=== PATIENT | female | born 1985 | race Caucasian/White ===

== ENCOUNTER 2019-02-14 18:12 | Emergency (ER) | payer BC, SELFPAY ==
[2019-02-14 18:14] VITALS: BP 156/112; PULSE 70; RESP 17; TEMP 36.9; O2SAT 100; BMI 23.9
--- NOTE | 2019-02-14 18:42 | CT_ITS ---
STUDY: CT BRAIN WITHOUT CONTRAST REASON FOR EXAM: Female, 33 years old. Orbital pain and elevated blood pressure RADIATION DOSAGE (If Supplied By Facility): CTDIvol = ( 44.99 ) mGy, DLP = ( 779.24 ) mGycm TECHNIQUE: Transaxial CT imaging of the brain was performed without administration of intravenous contrast material. Individualized dose optimization techniques were used for this CT. COMPARISON: No relevant priors. FINDINGS: Normal soft tissue structures. Normal calvarium. Normal size ventricles and extra-axial spaces for the patient's age. Normal white matter tracts of the cerebral hemispheres. Normal basal ganglia and thalami. Normal brainstem. Normal cerebellum. There is no intracranial hemorrhage. There are no findings of an acute ischemic infarction. Normal visualized paranasal sinuses. CT/Brain/Head without Contrast IMPRESSION: Normal unenhanced CT scan of the brain. Electronically Signed: Charan Bergeron MD at 19:23 EDT , Service support ,
--- NOTE | 2019-02-14 18:42 | EKG12_ITS ---
Test Reason : CP Blood Pressure : / mmHG Vent. Rate : 059 BPM Atrial Rate : 059 BPM P-R Int : 144 ms QRS Dur : 084 ms QT Int : 432 ms P-R-T Axes : 041 045 049 degrees QTc Int : 427 ms Sinus bradycardia Otherwise normal ECG Confirmed by PRANAV PLAZA, JULI ([id number]), market editor JAC GOLDSTEIN ([id number]) on 02/19/2019 10:34:11 AM Referred By: BLADIMIR Confirmed By:HEIKE ROCK MD
--- NOTE | 2019-02-14 18:51 | ED.RN ---
NO OLD EKGS IN MUSE
[2019-02-14 19:46] LABS: Bacteria 0 SEEN /hpf (None Seen); Mucous, Urine 0 SEEN /hpf (<or=2+); White Blood Cells 0 SEEN /hpf (0-5)
[2019-02-14 19:46] LABS: Anion Gap 7 (5-15); BUN 14 mg/dL (7-18); BUN/Creat Ratio 15.3 RATIO (10-20); Chloride 108 mmol/L (98-107); Creatinine, Serum 0.92 mg/dL (0.55-1.02); EST Glomerular Filtration Rate 75 mL/min (>60); Est Glom Filt Rate - Afr Amer 91 mL/min (>60); Estimated Creatinine Clearance 75.81 ml/min; Glucose 83 mg/dL (74-106); Potassium 3.8 mmol/L (3.5-5.1); Sodium Level 141 mmol/L (136-145)
[2019-02-14 20:13] LABS: Color, Urine Yellow (Yellow); Glucose, Dipstick Normal (Normal); Ketone-Dipstick 15 mg/dl (Negative); Leukocyte Esterase-Dipstick 25 /ul (Negative); Nitrite-Dipstick Negative (Negative); Occult Blood-Urine Negative /ul (Negative); Protein-Dipstick Negative (Negative); Urine Bilirubin Dipstick Negative (Negative); Urine Clarity Clear (Clear); Urine Urobilinogen Normal (Normal); Urine pH 6.5 (5.0 - 8.0)
--- NOTE | 2019-02-14 20:14 | ED.DCSUM_ITS ---
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 She describes dizziness which he defines as her depth perception being off. She also reports feeling as if she is in a fog and not concentrating. She reports tightness left chest, left shoulder and left upper extremity. She states she had trouble swallowing solids only a couple of days ago. She denies neck pain. She denies paresthesia, anesthesia motors. She denies dyspnea or dyspnea on exertion. She denies orthopnea or PND. She has no GI complaints. She has no complaints. She is on no anticoagulant. She is on no antihypertensive medication. Prior similar symptoms: Yes Recent Illness/Hospitalization: No - Past Medical History (1) Elevated blood-pressure reading without diagnosis of hypertension Status: Acute Past Medical History - Allergies and Home Meds Allergies/Adverse Reactions: Allergies cefazolin [From Ancef] Allergy (Verified 02/14/19 18:14) Anaphylaxis cephalexin [From Keflex] Allergy (Verified 02/14/19 18:14) Anaphylaxis Primary Care Physician: Carl Fraser,Out of [Primary Care Provider] - Prior records reviewed: No - None available for review Past Medical History: None Surgical History: no surgical history Lives: Spouse/ Significant Other Smoking Status: Never smoker Alcohol: None Drugs: None Review of Systems General: Denies: Chills, Fever, Malaise, Sweats Eyes: Reports: - - Altered depth perception. Denies: Visual changes - left, Visual changes - right, Visual changes - bilaterally, Blurred vision - left, Blurred vision - right, Blurred Vision - bilaterally, Diplopia, - ENT: Reports: - - No ringing in her ears or decreased hearing. Denies: Bi lateral ear pain, Rhinorrhea, Sore throat Cardiovascular: Reports: Chest pain. Denies: Palpitations, Heart racing Respiratory: Denies: Dyspnea, Cough, Sputum, Dyspnea on exertion, Orthopnea, Paroxysmal nocturnal dyspnea, -, - Gastrointestinal: Denies: Abdominal pain, Nausea, Vomiting, Diarrhea, Melena, Hematochezia Genitourinary: Denies: Dysuria, Hematuria, Frequency Musculoskeletal: Denies: Myalgias, Arthralgias, Neck pain, Back pain, Swelling, Extremity Pain, -, - Skin: Denies: Rash, Wounds Neurological: Reports: Headache. Denies: Weakness, Parasthesia, Numbness Endocrine: Denies: Polyuria, Polydipsia Hematologic: Denies: Easy bruising, Easy bleeding Allergy: Denies: Uticaria, Swelling of the mouth, Swelling of the tongue Physical Exam Vital Signs/Narrative: Vital Signs Temp Pulse Resp BP Pulse Ox 02/14/19 18:14 98.4 F 70 17 156/112 H 100 Inital Vital Signs reviewed: Yes General: Well nourished, Well developed, No Acute Distress Head: Normocephalic, Atraumatic Eyes: Perrl, EOMI, - - Endoscopic exam reveals normal cup-to-disc ratio no papilledema. There is no AV nicking noted.. Negative for: Pale conjunctiva, Scleral icterus ENT: Moist mucous membranes, No rhinorrhea, TM's clear Neck: Supple, Nontender, No lymphadenopathy, No JVD Cardiovascular: Regular rate, Regular rhythm, No murmurs, Normal S1, Normal S2 Respiratory: No distress, CTA bilaterally, Chest nontender Abdomen: Soft, Nontender, Nondistended, Normal bowel sounds Rectal: Deferred Back: Nontender, Normal Inspection Extremities: Nontender, No edema. Negative for: Calf Tenderness Skin: Normal color, No rash, Cyanosis, Diaphoresis, Jaundice. Negative for: No Trauma Neurological: Alert, Oriented x3, Cranial nerves II-XII grossly intact, Normal Strength, Normal Sensation, Normal DTR, Normal Gait, - - No clonus or Babinski sign. Lceokk-pi-awan with eyes open and closed was performed with no asymmetry or abnormality Psychological: Normal affect, Normal Mood Diagnostic/Tx/Re-eval Impressions Brain CT 02/14/19 18:42 IMPRESSION: Normal unenhanced CT scan of the brain. Electronically Signed: Charan Bergeron MD at 19:23 EDT , Service support , 02/14/19 18:42 Brain/Head without Contrast [CT] Stat Laboratory Results 02/14/19 02/14/19 18:55 19:38 Sodium 141 Potassium 3.8 Chloride 108 H Carbon Dioxide 26.0 Anion Gap 7 BUN 14 Creatinine 0.92 Estim Creat Clear Calc 75.81 Est GFR (MDRD) Af Amer 91 Est GFR (MDRD) Non-Af 75 BUN/Creatinine Ratio 15.3 Glucose 83 Calcium 9.0 Urine Color Yellow Urine Clarity Clear Urine pH 6.5 Ur Specific [place] 1.010 Urine Protein Negative Urine Glucose (UA) Normal Urine Ketones 15 H Urine Occult Blood Negative Urine Nitrite Negative Urine Bilirubin Negative Urine Urobilinogen Normal Ur Leukocyte Esterase 25 H - Medical Decision Making She with markedly elevated blood pressure. Because she complains of headache and has unusual neuro symptoms CT of the head was obtained. There is no evidence of intracranial bleed or stroke. Blood work was obtained to assess for endorgan injury. There is no evidence of endorgan injury. Since patient has multiple elevated blood pressure readings she received a dose of lisinopril in the department. She was discharged with prescription for lisinopril. Since she does not have a primary care physician he was referred to Dr. Malvin Leung. ED Disposition - Plan for ED Patient: Disposition: Home or Assisted Living Diagnosis: Accelerated hypertension Instructions: HYPERTENSION, New (Begin Treatment) Prescriptions: Lisinopril [Zestril] 10 mg PO DAILY #30 tab Prescription Printed Referrals: [facility] Doctor,Out of [Primary Care Provider] - Malvin Leung MD [STAFF PHYSICIAN] - 1-2 Weeks Additional Instructions: Since she had multiple elevated blood pressure readings you were started on lisinopril. You were given prescription for lisinopril. You should take 1 tablet daily. You do not have a position you may follow-up with Dr. Malvin Leung who is accepting new patients. You should have your blood pressure reassessed in 1 to 2 weeks.
[2019-02-14 20:23] VITALS: BP 161/101; PULSE 71; RESP 19; O2SAT 100
[2019-02-14 20:32] VITALS: BP 139/98; PULSE 73; RESP 78; TEMP -7.2; TEMP 19; O2SAT 98
[2019-02-14 20:40] LABS: Red Blood Cells-Urine 0-5 SEEN /hpf (0-5); Squamous Epithelial Cells - UA 0-5 SEEN /hpf (5-10)
[2019-02-14] MEDS: Lisinopril 10 MG Tablet PO (20:43)
== END 2019-02-14 20:41 | disposition home or self-care (01) ==
PROVIDERS: Emergency Provider Emergency Medicine; Family Provider Family Medicine; PCP Family Medicine
DX: I10 Essential (primary) hypertension (principal); H53.8 Other visual disturbances; R07.89 Other chest pain; M79.602 Pain in left arm; M25.512 Pain in left shoulder
CPT/HCPCS: 70450; 80048; 81001; 93005; 99285; A4216

== ENCOUNTER 2020-05-13 00:15 | Emergency (ER) | payer OTHER, SELFPAY ==
[2020-05-13] VITALS (11 sets, daily range): BP systolic 100–145; BP diastolic 69–100; PULSE 69–131; RESP 15–18; TEMP 36–36.6; O2SAT 98–100; BMI 22.8
[2020-05-13 01:10] LABS: Absolute Lymphocyte Count 2.51 X10^3/uL (0.83-4.51); Absolute Neutrophil Count 4.8 X10^3/uL (2.0-7.7); Basophil# 0.04 X10^3/uL; Basophil% 0.5 % (0-1); Eosinophil# 0.06 X10^3/uL; Eosinophils% 0.8 % (0-5); Hematocrit 49.3 % (37-47); Hemoglobin 15.9 g/dL (12.0-15.0); Lymphocyte # 2.51 X10^3/ul (4.0); Lymphocyte % 32.1 % (19-41); Mean Corp Hgb Conc 32.3 g/dL (32-36); Mean Corpuscular Hgb 31.2 pg (27.0-32.0); Mean Corpuscular Volume 96.7 fL (81-99); Mean Platelet Vol. 9.4 fl (6.2-12.0); Monocyte# 0.39 X10^3/uL; NRBC Flagged by Analyzer 0 % (0-5); Neutrophil # 4.79 X10^3/uL (2.7-7.7); Neutrophil % 61.3 % (47-70); Platelet Count 329 K/mm3 (150-450); RBC Distribution Width CV 11.7 % (11.6-14.6); White Blood Count 7.8 K/mm3 (4.4-11.0)
[2020-05-13 01:18] LABS: Internal QC Validated? YES +Cl - CLEAR BKGD; Pregnancy, Serum, hCG Quali. NEGATIVE Negative
[2020-05-13 01:26] LABS: Anion Gap 13 (5-15); BUN 11 mg/dL (7-18); BUN/Creat Ratio 11.2 RATIO (10-20); Calcium,Total 9.3 mg/dL (8.5-10.1); Chloride 107 mmol/L (98-107); Creatinine, Serum 0.98 mg/dL (0.55-1.02); EST Glomerular Filtration Rate 69 mL/min (>60); Est Glom Filt Rate - Afr Amer 84 mL/min (>60); Estimated Creatinine Clearance 69.85 ml/min; Glucose 97 mg/dL (74-106); Potassium 3.6 mmol/L (3.5-5.1); Sodium Level 142 mmol/L (136-145)
[2020-05-13 01:30] LABS: Acetaminophen (Tylenol) Level < 10.0 ug/mL (10.0-30.0); Salicylate < 1.7 mg/dL (2.8-20.0)
[2020-05-13 01:38] LABS: Mucous, Urine 0 SEEN /hpf (<or=2+); Red Blood Cells-Urine 0 SEEN /hpf (0-5); White Blood Cells 0 SEEN /hpf (0-5)
[2020-05-13 01:41] LABS: Color, Urine Yellow (Yellow); Glucose, Dipstick Normal (Normal); Ketone-Dipstick Negative (Negative); Leukocyte Esterase-Dipstick Negative /ul (Negative); Nitrite-Dipstick Negative (Negative); Occult Blood-Urine Negative /ul (Negative); Protein-Dipstick Negative (Negative); Urine Bilirubin Dipstick Negative (Negative); Urine Clarity Clear (Clear); Urine Urobilinogen Normal (Normal); Urine pH 6.5 (5.0 - 8.0)
[2020-05-13 01:47] LABS: Amorphous Sediment 1+; Bacteria RARE /hpf (None Seen); Squamous Epithelial Cells - UA 0-5 SEEN /hpf (5-10)
[2020-05-13 01:53] LABS: Amphetamine Urine VISTA NEGATIVE (<1000 ng/mL); Barbiturate Urine VISTA NEGATIVE (< 200 ng/mL); Benzodiazepine Urine VISTA NEGATIVE (< 200 ng/mL); Cocaine Urine VISTA NEGATIVE (< 300 ng/mL); Ecstacy Urine VISTA NEGATIVE (< 500 ng/mL); Methadone Urine VISTA NEGATIVE (< 300 ng/mL); PCP Urine VISTA NEGATIVE (< 25 ng/mL); THC Urine VISTA NEGATIVE (< 50 ng/mL); Vista UDS pH Range 6
--- NOTE | 2020-05-13 03:51 | ED.DCSUM_ITS ---
- ER Visit Summary Date of Service: 05/13/20 Chief Complaint: Suicide attempt, overdose History of Present Illness: The patient is a 35 F who comes in stating that she took some pills today in an attempt to hurt her self. She admits to taking four Klonopin and seven Prozac tablets. She states that she did this because she felt depressed. She states that there is no triggers at home or with work the cause of this. She has a history of bipolar disorder and has been off of her medications for 8 months. She does admit to drinking a couple glasses of wine tonight as well. She admits that she has had two psychiatric admissions in the past. Physical Examination: Vital signs reviewed. HEENT exam unremarkable. Heart is regular rate and rhythm without murmurs. Lungs are clear to auscultation. Abdomen is soft and nontender. Extremities reveal no edema. Skin exam normal. Neurologic exam normal. The patient is depressed. She does voice suicidal thoughts. Her insight and judgment are poor. Test Results: Hemoglobin is 15.9, alcohol level 155. Toxicology, salicylates and acetaminophen levels are normal. hCG is negative. Emergency Department Course and Treatment: The patient is medically cleared for psychiatric admission and evaluation. The patient will metabolize her alcohol. Crisis will then evaluate this patient and determine disposition for this patient. Treatment Plan: [] Disposition: Impression: Suicide attempt, polysubstance overdose This note was generated with [employer] dictation software. It may contain incorrect words, spelling, and punctuation that were not noted in review of the chart prior to signing ED Disposition - Plan for ED Patient: Referrals: Care Physician,No Primary [Primary Care Provider] -
--- NOTE | 2020-05-13 06:53 | NURSING ---
joana, crisis, talking to patient
--- NOTE | 2020-05-13 09:51 | EKG12_ITS ---
Test Reason : OVERDOSE Blood Pressure : / mmHG Vent. Rate : 088 BPM Atrial Rate : 088 BPM P-R Int : 140 ms QRS Dur : 072 ms QT Int : 360 ms P-R-T Axes : 070 057 048 degrees QTc Int : 435 ms Normal sinus rhythm Normal ECG Confirmed by ARTHUR PLAZA, MORTEZA ([id number]), supervising editor news reel BRETT CROWE ([id number]) on 05/15/2020 11:03:26 AM Referred By: JOHN Confirmed By:MORTEZA GIBSON MD
--- NOTE | 2020-05-13 11:43 | CM.ED ---
SOCIAL WORK Received call from [facility] with Crisis. [facility] requesting copy of EKG be faxed to Crisis. Patient pending placement at [facility]. EKG faxed to Crisis. Taya Boyle, MANAGER IN TRAINING, SECONDARY SET UP MAN
--- NOTE | 2020-05-13 12:02 | NURSING ---
FAXED COVID TO CRISIS
--- NOTE | 2020-05-13 12:49 | ED.RN ---
[facility] PT. [facility] NO BEDS AVAILABLE. [facility] LOOKING AT CHART
--- NOTE | 2020-05-13 13:00 | NURSING ---
CALLED CRISIS. TALKED TO RADHA. [facility] NO BEDS GOING TO CALL ANOTHER PLACE, SHOULD GET A BED TODAY
--- NOTE | 2020-05-13 14:30 | CM.ED ---
SOCIAL WORK Received call from [facility] requesting updated vital signs be faxed to [phone]. All questions answered. Vital signs faxed. Call to [facility] with Crisis to update. Per [facility], [facility] is working on contract with [facility] to accept patient. If accepted, [facility] reports [facility] will set up transport as patient is self-pay. Staff updated. Taya Boyle, BIN TRIPPER OPERATOR, EXTENSION WORKER
[2020-05-13] MEDS: Lisinopril 10 MG Tablet PO (14:58)
[2020-05-13] MEDS: clonazePAM 1 MG Tablet PO (14:58)
--- NOTE | 2020-05-13 16:31 | CM.ED ---
SOCIAL WORK Received call from [facility] with Crisis. Patient has been accepted to [facility] by Dr. Reese. Nurse to call report to [phone]. [facility] reports will set up transport and call this worker back with ETA. Staff updated. Plan: Marlon Boyle, MANAGER ECONOMIC, COATING AND BAKING OPERATOR
--- NOTE | 2020-05-13 16:35 | CM.ED ---
SOCIAL WORK Received call back from [facility] with Crisis. Per [facility], transport to arrive within 30 minutes. aTya Boyle, MERCHANDISING SPECIALIST, BENCH WORKER HOLLOW HANDLE
--- NOTE | 2020-05-13 16:36 | NURSING ---
ACCEPTED AT [facility]. [facility] TO BE HERE IN 30 MIN
== END 2020-05-13 17:22 ==
PROVIDERS: Emergency Provider Emergency Medicine
DX: F31.9 Bipolar disorder, unspecified (principal); T42.4X2A Poisoning by benzodiazepines, intentional self-harm, initial encounter; T43.222A Poisoning by selective serotonin reuptake inhibitors, intentional self-harm, initial encounter; T51.0X2A Toxic effect of ethanol, intentional self-harm, initial encounter; Y90.6 Blood alcohol level of 120-199 mg/100 ml; Y92.9 Unspecified place or not applicable; I10 Essential (primary) hypertension; Z79.899 Other long term (current) drug therapy
CPT/HCPCS: 80048; 80307; 80320; 80329; 81001; 84703; 85025; 87426; 93005; 99285; A4216; G0480

== ENCOUNTER → 2020-11-26 15:55 | Outpatient (CLI) | payer OTHER, SELFPAY ==
[2020-09-17 08:46] VITALS: BMI 22.8
[2020-11-26 17:25] LABS: Absolute Lymphocyte Count 2.79 X10^3/uL (0.83-4.51); Basophil# 0.06 X10^3/uL; Basophil% 0.9 % (0-1); Eosinophil# 0.09 X10^3/uL; Eosinophils% 1.4 % (0-5); Hematocrit 43.7 % (37-47); Hemoglobin 14.1 g/dL (12.0-15.0); Lymphocyte # 2.79 X10^3/ul (0.83-4.51); Mean Corp Hgb Conc 32.3 g/dL (32-36); Mean Corpuscular Hgb 30.3 pg (27.0-32.0); Mean Corpuscular Volume 93.8 fL (81-99); Mean Platelet Vol. 9.7 fl (6.2-12.0); Monocyte# 0.52 X10^3/uL; NRBC Flagged by Analyzer 0 % (0-5); Neutrophil % 46.2 % (47-70); Platelet Count 399 K/mm3 (150-450); RBC Distribution Width CV 11.9 % (11.6-14.6); RBC Distribution Width SD 41.1 fl (35.1-43.9); Red Blood Count 4.66 M/mm3 (4.2-5.4); White Blood Count 6.5 K/mm3 (4.4-11.0)
[2020-11-26 18:04] LABS: ALB/GLOB Ratio 1.1 RATIO (0.9-2.4); AST(SGOT) 34 U/L (15-37); Alanine Aminotransfer ALT/SGPT 49 U/L (13-56); Albumin, Serum 3.7 g/dL (3.2-5.0); Alkaline Phosphatase 73 U/L (45-117); Anion Gap 5 (5-15); BUN 20 mg/dL (7-18); BUN/Creat Ratio 18.3 RATIO (10-20); Calcium,Total 8.9 mg/dL (8.5-10.1); Chloride 105 mmol/L (98-107); Cholesterol 205 mg/dL (200); Creatinine, Serum 1.09 mg/dL (0.55-1.02); EST Glomerular Filtration Rate 61 mL/min (>60); Est Glom Filt Rate - Afr Amer 74 mL/min (>60); Globulin 3.3 g/dL (2.2-4.2); Glucose 80 mg/dL (74-106); High Density Lipoprotein 83 mg/dL; Potassium 3.9 mmol/L (3.5-5.1); Sodium Level 139 mmol/L (136-145); Thyroid Stim Hormone (TSH) 1.99 uIU/mL (0.358-3.74); Triglycerides 90 mg/dL; Very Low Density Lipoprotein 18 mg/dL (5-40)
[2020-11-26 18:18] LABS: Vitamin B12 532 pg/mL (211-911); Vitamin D,25 Hydroxy 52.2 ng/mL
== END ==
PROVIDERS: PCP Family Medicine; Referring Provider Family Medicine; Visit Provider Family Medicine
DX: R53.83 Other fatigue (principal); E78.1 Pure hyperglyceridemia; E55.9 Vitamin D deficiency, unspecified
CPT/HCPCS: 36415; 80053; 80061; 82306; 82607; 84443; 85025

== ENCOUNTER 2021-02-11 07:36 | Emergency (ER) | payer OTHER, SELFPAY ==
[2021-02-11 07:37] VITALS: BP 126/88; PULSE 73; RESP 16; TEMP 36.6; O2SAT 96; BMI 24.4
[2021-02-11] MEDS: Fluorescein 1 MG STRIP 1 STRIP EACH EYE (07:51)
[2021-02-11] MEDS: Tetracaine 0.5% Ophthalmic Bottle 1 DRP EACH EYE (07:52)
--- NOTE | 2021-02-11 07:58 | EDS_ITS ---
HPI History of Present Illness Chief Complaint: Eye Problem Informant: patient Narrative Narrative: Patient is a 35-year-old female with a past medical history of hypertension who presents to the emergency department for painful left eye. She states she fell asleep with her contacts and last night. Whenever she went to remove the left contact she developed a severe pain in the eye. The eye has been draining and having a runny nose since. She states that does feel like the eye is scratched. She has not put her contacts in since this. She does not take anything for her symptoms. She is never had issues with her eyes before in the past. She denies any fevers or chills. She has had a mild headache with this. [facility] Medical History (Updated 02/11/21 @ 07:[address] Yonis Beauchamp DO) HTN (hypertension) Home Medications lisinopril 10 mg PO DAILY #30 tab 02/14/19 [Rx Last Taken Unknown] clonazepam 1 mg PO TID 05/13/20 [History Last Taken Unknown] lurasidone 40 mg PO DAILY 05/13/20 [History Last Taken Unknown] prazosin 3 mg PO DAILY 05/13/20 [History Last Taken Unknown] tobramycin 2 drp LEFT EYE Q4H 5 Days #5 ml 02/11/21 [Rx Last Taken Unknown] Allergy/AdvReac Type Severity Reaction Status Date / Time cefazolin [From Ancef] Allergy Anaphylaxis Verified 02/11/21 07:36 cephalexin [From Keflex] Allergy Anaphylaxis Verified 02/11/21 07:36 Penicillins [PCN] Allergy Anaphylaxis Verified 02/11/21 07:36 Social History Smoking Status: Never smoker ROS [facility] ED Constitutional Constitutional ED: Denies chills or fever(s) Eyes Eyes: Reports blurry vision ENT ENT ED: Reports rhinorrhea; Denies epistaxis Cardiovascular Cardiovascular: Denies chest pain Respiratory/Chest Respiratory/Chest: Denies cough or dyspnea Gastrointestinal Gastrointestinal: Denies abdominal pain, nausea or vomiting Musculoskeletal Musculoskeletal: Denies back pain or neck pain Integumentary Denies rash Neurologic Neurologic: Reports headache(s); Denies dizziness or weakness EXAM Physical Exam Const Vital Signs: 02/11/21 07:37 Temperature 97.9 F Temperature Source Temporal Pulse Rate 73 Respiratory Rate 16 Blood Pressure 126/88 H Blood Pressure Mean 100 Pulse Ox 96 Oxygen Delivery Method Room Air Positive well nourished and well developed General Appearance ED: well developed HEENT Reports normocephalic, head/scalp atraumatic and moist mucous membranes Eyes PERRL and EOMs intact bilaterally Eyes Narrative: Sclera is injected. On fluorescein exam there is a small corneal abrasion just over the pupil. No foreign body appreciated. There is mild eyelid swelling and tearing present. Neck supple Resp normal respiratory effort and clear to auscultation bilaterally Auscultation: Negative for rales, rhonchi or wheezes Cardio regular rate, regular rhythm and no murmurs Extremity normal to inspection General Extremety ED: Negative for edema or tenderness General Extremity: Negative for edema Neuro Sensorium / Orientation: alert Motor Exam: strength 5/5 throughout Psych mental status grossly normal Skin no rashes or lesions noted MDM MDM MDM Narrative Medical decision making narrative: Patient presents to the ED for eye pain after trying to remove her contact. On arrival vital signs within normal limits. On fluorescein exam she does have a small corneal abrasion. Since she is a contact wearer will cover her for Pseudomonas with tobramycin eyedrop. She is given referral for ophthalmology. She is to contact them today and get an appointment within the next 48 hours. Return precautions reviewed with her. She understands and is agreeable this plan. All questions answered. Discharge Plan Triage Chief Complaint: Eye Problem ED Provider: Yonis Beauchamp Dx/Rx/DC Orders Clinical Impression: Corneal abrasion Instructions: ED Corneal Abrasion Prescriptions: New tobramycin 0.3 % drops 2 drp LEFT EYE Q4H 5 Days Qty: 5 RF: 0 No Action lisinopril 10 MG tablet 10 mg PO DAILY Qty: 30 RF: 0 prazosin 1 MG capsule 3 mg PO DAILY RF: 0 clonazepam 1 MG tablet 1 mg PO TID RF: 0 lurasidone 40 MG tablet 40 mg PO DAILY RF: 0 Primary Care Provider: Phil Burnett Referrals: Phil Burnett MD [Primary Care Provider] - Ray Murcia MD [STAFF PHYSICIAN] - 1 Day Disposition Disposition: Home, Self Care
[2021-02-11 08:12] VITALS: RESP 18
== END 2021-02-11 08:12 | disposition home or self-care (01) ==
LOC: ED 08:08
PROVIDERS: Emergency Provider Emergency Medicine; PCP Family Medicine
DX: H18.822 Corneal disorder due to contact lens, left eye (principal); I10 Essential (primary) hypertension; Z79.899 Other long term (current) drug therapy
CPT/HCPCS: 99282

== ENCOUNTER 2021-07-05 14:48 | Outpatient (CLI) | payer OTHER, SELFPAY ==
[2021-07-05 17:51] LABS: Mean Corp Hgb Conc 31.9 g/dL (32-36); Mean Corpuscular Hgb 28.4 pg (27.0-32.0); Mean Corpuscular Volume 88.8 fL (81-99); Mean Platelet Vol. 10.3 fl (6.2-12.0); Platelet Count 479 K/mm3 (150-450); RBC Distribution Width CV 13.2 % (11.6-14.6); Red Blood Count 5.29 M/mm3 (4.2-5.4); White Blood Count 8.3 K/mm3 (4.4-11.0)
[2021-07-05 18:01] LABS: Erythrocyte Sedimentation Rate 3 mm/hr (0-30)
[2021-07-05 18:23] LABS: CRP, High Sensitivity Cardiac 0.75 mg/L
== END 2021-07-05 23:59 | disposition short-term general hospital (02) ==
PROVIDERS: Referring Provider Family Medicine; Visit Provider Family Medicine
DX: T14.8XXA Other injury of unspecified body region, initial encounter (principal); I80.9 Phlebitis and thrombophlebitis of unspecified site
CPT/HCPCS: 36415; 85027; 85652; 86141

== ENCOUNTER 2021-10-26 14:22 | Emergency (ER) | payer MEDICAID, SELFPAY ==
[2021-10-26 14:22] VITALS: BP 139/98; PULSE 124; RESP 16; TEMP 37.3; O2SAT 100; BMI 19.1
--- NOTE | 2021-10-26 14:43 | RAD_ITS ---
STUDY: X-RAY - LEFT FOOT CLINICAL: Female, 36 years old. Dorsal pain following injury. TECHNIQUE: 3 view(s) of the foot. COMPARISON: None. FINDINGS: Normal talus, calcaneus, and tarsal bones. Normal visualized subtalar, talonavicular, calcaneocuboid, tarsal and tarsometatarsal articulations. Normal metatarsi. Normal metatarsophalangeal joint of the great toe. Normal tibial and fibular sesamoid bones. Normal interphalangeal joint of the great toe. Normal phalanges of the great toe. Normal second through fifth metatarsophalangeal joints. Normal interphalangeal joints and phalanges of the lesser toes. Dorsal soft tissue swelling. RAD/Foot min 3 Views IMPRESSION: Dorsal soft tissue swelling. Electronically Signed: Dani Mi MD at 14:55 EDT ,
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
== END 2021-10-26 15:10 | disposition home or self-care (01) ==
PROVIDERS: Emergency Provider Emergency Medicine; PCP Family Medicine; Visit Provider Emergency Medicine
DX: S90.32XA Contusion of left foot, initial encounter (principal); S80.02XA Contusion of left knee, initial encounter; S50.11XA Contusion of right forearm, initial encounter; S70.12XA Contusion of left thigh, initial encounter; I10 Essential (primary) hypertension; Y04.8XXA Assault by other bodily force, initial encounter; Z79.899 Other long term (current) drug therapy
CPT/HCPCS: 73630; 99282

== ENCOUNTER 2021-11-03 16:04 | Emergency (ER) | payer MEDICAID, SELFPAY ==
[2021-11-03 16:06] VITALS: BP 138/101; PULSE 68; RESP 18; TEMP 36.4; O2SAT 98; BMI 19.8
--- NOTE | 2021-11-03 16:50 | RAD_ITS ---
EXAM: XR LEFT FOOT COMPLETE, 3 OR MORE VIEWS CLINICAL INDICATION: pain, trauma TECHNIQUE: Frontal, lateral and oblique views of the left foot. This report was created using [employer] report generation technology. COMPARISON: None. FINDINGS: BONES/JOINTS: Unremarkable. No acute fracture. No subluxation. Normal alignment. Preservation of the joint space. No sclerotic or destructive changes observed. SOFT TISSUES: Unremarkable. No soft tissue swelling or gas. No radiopaque foreign body. RAD/Foot min 3 Views IMPRESSION: Negative left foot x-rays. Electronically Signed: Mitchel Gomez MD at 17:12 EDT ,
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
== END 2021-11-03 17:53 | disposition home or self-care (01) ==
LOC: ED 17:12
PROVIDERS: Emergency Provider Emergency Medicine; PCP Family Medicine; Visit Provider Emergency Medicine
DX: S90.32XA Contusion of left foot, initial encounter (principal); S80.02XA Contusion of left knee, initial encounter; Y04.8XXA Assault by other bodily force, initial encounter; I10 Essential (primary) hypertension
CPT/HCPCS: 73630; 99282

== ENCOUNTER → 2024-01-19 | Outpatient (CLI) | payer SELFPAY ==
[2024-01-19 17:51] LABS: Absolute Lymphocyte Count 2.72 X10^3/uL (0.83-4.51); Absolute Neutrophil Count 5.8 X10^3/uL (2.0-7.7); Basophil# 0.08 X10^3/uL; Basophil% 0.9 % (0-1); Eosinophil# 0.08 X10^3/uL; Eosinophils% 0.9 % (0-5); Hematocrit 48.1 % (37-47); Hemoglobin 15.5 g/dL (12.0-15.0); Lymphocyte # 2.72 X10^3/ul (0.83-4.51); Lymphocyte % 29.2 % (19-41); Mean Corp Hgb Conc 32.2 g/dL (32-36); Mean Corpuscular Hgb 29.7 pg (27.0-32.0); Mean Corpuscular Volume 92.1 fL (81-99); Mean Platelet Vol. 8.8 fl (6.2-12.0); Monocyte# 0.63 X10^3/uL; Monocyte% 6.8 % (0-10); NRBC Flagged by Analyzer 0 % (0-5); Neutrophil # 5.78 X10^3/uL (2.7-7.7); Platelet Count 712 K/mm3 (150-450); RBC Distribution Width CV 12.2 % (11.6-14.6); RBC Distribution Width SD 41.3 fl (35.1-43.9); Red Blood Count 5.22 M/mm3 (4.2-5.4); White Blood Count 9.3 K/mm3 (4.4-11.0)
[2024-01-19 18:13] LABS: AST(SGOT) 28 U/L (15-37); Alanine Aminotransfer ALT/SGPT 29 U/L (13-56); Albumin, Serum 3.6 g/dL (3.2-5.0); Alkaline Phosphatase 59 U/L (45-117); Anion Gap 7 (5-15); BUN 16 mg/dL (7-18); Calcium,Total 9.6 mg/dL (8.5-10.1); Chloride 105 mmol/L (98-107); Cholesterol 205 mg/dL (200); Creatinine, Serum 0.89 mg/dL (0.55-1.02); EST Glomerular Filtration Rate 76 mL/min (>60); Est Glom Filt Rate - Afr Amer 92 mL/min (>60); Globulin 3.5 g/dL (2.2-4.2); Glucose 94 mg/dL (74-106); High Density Lipoprotein 76 mg/dL; Magnesium 2.2 mg/dL (1.6-2.6); Potassium 3.8 mmol/L (3.5-5.1); Protein, Total 7.1 g/dL (6.4-8.2); Sodium Level 136 mmol/L (136-145); Thyroid Stim Hormone (TSH) 0.79 uIU/mL (0.358-3.74); Triglycerides 85 mg/dL; Very Low Density Lipoprotein 17 mg/dL (5-40)
== END | disposition home or self-care (01) ==
LOC: MFPLAB 15:14
PROVIDERS: PCP Family Medicine; Visit Provider Family Medicine
DX: I10 Essential (primary) hypertension (principal)
CPT/HCPCS: 36415; 80053; 80061; 83735; 84443; 85025

== ENCOUNTER → 2024-01-29 | Outpatient (CLI) | payer SELFPAY ==
[2024-01-29 11:50] LABS: Absolute Lymphocyte Count 2.57 X10^3/uL (0.83-4.51); Absolute Neutrophil Count 4.4 X10^3/uL (2.0-7.7); Basophil# 0.09 X10^3/uL; Basophil% 1.2 % (0-1); Eosinophil# 0.08 X10^3/uL; Hematocrit 44.3 % (37-47); Hemoglobin 14.1 g/dL (12.0-15.0); Lymphocyte # 2.57 X10^3/ul (0.83-4.51); Lymphocyte % 33.2 % (19-41); Mean Corp Hgb Conc 31.8 g/dL (32-36); Mean Corpuscular Hgb 29.4 pg (27.0-32.0); Mean Corpuscular Volume 92.5 fL (81-99); Monocyte% 7.8 % (0-10); NRBC Flagged by Analyzer 0 % (0-5); Neutrophil # 4.36 X10^3/uL (2.7-7.7); Neutrophil % 56.4 % (47-70); Platelet Count 661 K/mm3 (150-450); RBC Distribution Width CV 11.9 % (11.6-14.6); RBC Distribution Width SD 40.9 fl (35.1-43.9); Red Blood Count 4.79 M/mm3 (4.2-5.4); White Blood Count 7.7 K/mm3 (4.4-11.0)
[2024-01-29 12:07] LABS: Ferritin 39 ng/mL (8-252); Iron 137 ug/dL (50-170)
[2024-01-30 12:00] LABS: Transferrin 264 mg/dL (192-364)
== END | disposition home or self-care (01) ==
LOC: MFPLAB 10:12
PROVIDERS: PCP Family Medicine; Visit Provider Family Medicine
DX: D75.1 Secondary polycythemia (principal); D75.839 Thrombocytosis, unspecified
CPT/HCPCS: 36415; 82728; 83540; 84466; 85025

== ENCOUNTER → 2024-04-23 | Outpatient (CLI) | payer OTHER, SELFPAY | END | disposition home or self-care (01) | PROVIDERS: PCP Family Medicine; Referring Provider Internal Medicine Medical Oncology; Visit Provider Internal Medicine Medical Oncology | DX: D47.1 Chronic myeloproliferative disease (principal); D75.839 Thrombocytosis, unspecified | CPT/HCPCS: 36415; 81270 ==

== ENCOUNTER → 2025-01-08 | Outpatient (CLI) | payer OTHER, SELFPAY ==
[2025-01-08 15:35] LABS: Mucous, Urine 0 SEEN /hpf (<or=2+); Red Blood Cells-Urine 0 SEEN /hpf (0-5)
[2025-01-08 18:36] LABS: Hematocrit 44.5 % (37-47); Hemoglobin 14.6 g/dL (12.0-15.0); Immature Granulocytes Count 0.030 X10^3/uL (0.0-0.0); Mean Corp Hgb Conc 32.8 g/dL (32-36); Mean Corpuscular Volume 89.0 fL (81-99); Mean Platelet Vol. 9.0 fl (6.2-12.0); NRBC Flagged by Analyzer 0 % (0-5); Platelet Count 590 K/mm3 (150-450); RBC Distribution Width CV 12.2 % (11.6-14.6); RBC Distribution Width SD 39.9 fl (35.1-43.9); Red Blood Count 5.00 M/mm3 (4.2-5.4); White Blood Count 9.4 K/mm3 (4.4-11.0)
[2025-01-08 20:51] LABS: AST(SGOT) 20 U/L (<=31); Alanine Aminotransfer ALT/SGPT 15 U/L (<=34); Albumin, Serum 4.1 g/dL (3.5-5.0); Alkaline Phosphatase 65 U/L (35-104); Anion Gap 13 (5-15); BUN 16 mg/dL (4-19); BUN/Creat Ratio 16.8 RATIO (10-20); Calcium,Total 9.7 mg/dL (7.6-11.0); Carbon Dioxide 22.3 mmol/L (21.0-32.0); Chloride 105 mmol/L (98-108); Cholesterol 223 mg/dL (<=200); Globulin 2.5 g/dL (2.2-4.2); Glucose 101 mg/dL (70-99); Low Density Lipoprotein Calc. 122 mg/dL; Magnesium 2.1 mg/dL (1.5-2.2); Potassium 3.8 mmol/L (3.3-5.1); Triglycerides 143 mg/dL; Very Low Density Lipoprotein 29 mg/dL (5-40); Vitamin B12 1031 pg/mL (180-914); Vitamin D,25 Hydroxy 19.5 ng/mL (30-100); cholesterol:hdl ratio screen 3.09
[2025-01-08 21:36] LABS: Color, Urine Straw (Yellow); Glucose, Dipstick Normal (Normal); Ketone-Dipstick Negative (Negative); Leukocyte Esterase-Dipstick Negative /ul (Negative); Nitrite-Dipstick Negative (Negative); Occult Blood-Urine Negative /ul (Negative); Protein-Dipstick Negative (Negative); Specific Gravity, Urine 1.010 (1.002-1.030); Urine Bilirubin Dipstick Negative (Negative)
[2025-01-08 22:54] LABS: Squamous Epithelial Cells - UA 0-5 SEEN /hpf (5-10)
== END | disposition home or self-care (01) ==
PROVIDERS: PCP Family Medicine; Referring Provider Family Medicine; Visit Provider Family Medicine
DX: I10 Essential (primary) hypertension (principal); R53.83 Other fatigue
CPT/HCPCS: 36415; 80053; 80061; 81001; 82306; 82607; 83735; 84439; 84443; 85025

== ENCOUNTER → 2025-04-15 | Outpatient (CLI) | payer OTHER, SELFPAY ==
[2025-04-15 09:00] LABS: Mucous, Urine 0 SEEN /hpf (<or=2+); Red Blood Cells-Urine 0 SEEN /hpf (0-5)
[2025-04-15 09:56] LABS: Color, Urine Straw (Yellow); Glucose, Dipstick Normal (Normal); Ketone-Dipstick Negative (Negative); Leukocyte Esterase-Dipstick Negative /ul (Negative); Nitrite-Dipstick Negative (Negative); Occult Blood-Urine Negative /ul (Negative); Protein-Dipstick 15 mg/dl (Negative); Specific Gravity, Urine 1.010 (1.002-1.030); Urine Bilirubin Dipstick Negative (Negative)
[2025-04-15 09:59] LABS: Hematocrit 43.7 % (37-47); Hemoglobin 14.8 g/dL (12.0-15.0); Immature Granulocytes Count 0.010 X10^3/uL (0.0-0.0); Mean Corp Hgb Conc 33.9 g/dL (32-36); Mean Corpuscular Volume 89.0 fL (81-99); Mean Platelet Vol. 8.7 fl (6.2-12.0); NRBC Flagged by Analyzer 0 % (0-5); Platelet Count 534 K/mm3 (150-450); RBC Distribution Width CV 11.9 % (11.6-14.6); RBC Distribution Width SD 38.7 fl (35.1-43.9); Red Blood Count 4.91 M/mm3 (4.2-5.4); White Blood Count 7.2 K/mm3 (4.4-11.0)
[2025-04-15 10:08] LABS: Squamous Epithelial Cells - UA 0-5 SEEN /hpf (5-10)
[2025-04-15 10:29] LABS: AST(SGOT) 21 U/L (<=31); Alanine Aminotransfer ALT/SGPT 17 U/L (<=34); Albumin, Serum 4.3 g/dL (3.5-5.0); Alkaline Phosphatase 50 U/L (35-104); Anion Gap 10 (5-15); BUN 19 mg/dL (4-19); BUN/Creat Ratio 20.8 RATIO (10-20); Calcium,Total 9.7 mg/dL (7.6-11.0); Carbon Dioxide 25.1 mmol/L (21.0-32.0); Chloride 103 mmol/L (98-108); Cholesterol 197 mg/dL (<=200); Globulin 2.4 g/dL (2.2-4.2); Glucose 93 mg/dL (70-99); Low Density Lipoprotein Calc. 116 mg/dL; Magnesium 2.3 mg/dL (1.5-2.2); Potassium 4.2 mmol/L (3.3-5.1); Triglycerides 49 mg/dL; Very Low Density Lipoprotein 10 mg/dL (5-40); Vitamin D,25 Hydroxy 61.5 ng/mL (30-100); cholesterol:hdl ratio screen 2.74
== END | disposition home or self-care (01) ==
LOC: MFPLAB 08:58
PROVIDERS: PCP Family Medicine; Visit Provider Family Medicine
DX: I10 Essential (primary) hypertension (principal)
CPT/HCPCS: 36415; 80053; 80061; 81001; 82306; 83735; 84443; 85025